=== PATIENT | male | born 1970 | race Caucasian/White ===

== ENCOUNTER → 2018-08-09 | Outpatient (CLI) | payer OTHER ==
[~2018-08-09] MED LIST: ASPI-586 PO; DOXY100C2 PO; METO-387 PO; NAPR-243 PO; PRD50T PO
--- NOTE | 2018-08-09 16:29 | Diagnostic Imaging Report ---
PROCEDURE: US right lower extremity venous. TECHNIQUE: Multiple real-time grayscale images were obtained over the right lower extremity in various projections. Additional spectral analysis and color Doppler duplex images were also obtained. INDICATION: Right leg swelling. FINDINGS: The veins in the right leg have good compressibility and color filling. There is normal spontaneous and augmented flow. IMPRESSION: Negative venous Doppler of the right leg. Dictated by: Dictated on workstation # [id number]
== END ==
LOC: RAD 15:20
PROVIDERS: ATTEND Nurse Practitioner Family
DX: M79.89 Other specified soft tissue disorders (principal)

== ENCOUNTER 2023-05-01 23:25 | Emergency (ER) | payer SELFPAY ==
[~2023-05-01] VITALS: Ht 182.8 cm; Wt 72.5 kg
[~2023-05-01 23:25] MED LIST changes: -METO-387 PO; +MTP25TSR PO
[2023-05-01 23:36] VITALS: BP 134/88
--- NOTE | 2023-05-01 23:53 | ED Lower Extremity ---
General Stated Complaint: RIGHT FOOT INJURY Source: patient Exam Limitations: no limitations History of Present Illness Date Seen by Provider: May 01, 2023 Time Seen by Provider: 23:40 Initial Comments Patient is a 53yo male who presents to the ED with a complaint of right foot pain and swelling - redness over the medial dorsal foot that showed up last night. Originally 2 weeks ago he hit the top of his foot with an axe and had pain but is able to walk. Then 2 days ago he slipped or tripped and then developed swelling and redness to the top of the foot. He is quite agitated, after I delineated the plan for xrays and checking his blood sugar he decided that he would just go to the [facility] tomorrow. He states "if you dont think it's life threatening" many times. I tried to explain - I don't know if its an abscess or broken until we do these things here. And he insisted that he would be seen tomorrow. He began to put his sock back on and decided he would leave. I did advise that this could get worse but he was more than welcome to do whatever he felt was best for him. Onset: other (worse x2 day) Severity: moderate Pain/Injury Location: right other (dorsum right foot) Method of Injury: other (direct blow then twisting injury) Allergies and Home Medications Allergies Coded Allergies: Penicillins (Unverified Allergy, Mild, 01/08/11) Patient Home Medication List Home Medication List Reviewed: Yes Aspirin (Aspir 81) 81 Mg Tablet.dr, 81 MG PO DAILY, (Reported) Entered as Reported by: ROSY OBREGON on 12/27/151751 Metoprolol Succinate (Metoprolol Succinate) 25 Mg Tab.er.24h, 25 MG PO BID, (Reported) Entered as Reported by: ROSY OBREGON on 12/27/151751 Review of Systems Constitutional: see HPI Respiratory: no symptoms reported Cardiovascular: no symptoms reported Gastrointestinal: no symptoms reported Genitourinary: no symptoms reported Musculoskeletal: joint pain (right foot) Skin: other (redness to the top of the foot with swelling and pain) All Other Systems Reviewed Negative Unless Noted: Yes Past Hnowspt-Ivwvjb-Bsxwgv Hx Seasonal Allergies Seasonal Allergies: No Past Medical History Heart Attack Physical Exam Vital Signs Vital Signs - First Documented 05/01/23 23:36 Temp 37.0 Pulse 104 Resp 16 B/P (MAP) 134/88 (103) Pulse Ox 95 O2 Delivery Room Air Capillary Refill : Height, Weight, BMI Height: 5'11" Weight: 194lbs. oz. 87.257635jn; BMI Method:Stated General Appearance: other (agitated, pressured speech; dissheveled and dirty) HEENT: PERRL/EOMI Cardiovascular: regular rate, rhythm Respiratory: no respiratory distress, no accessory muscle use Hips: bilateral hip non-tender, bilateral hip normal inspection, bilateral hip normal range of motion, bilateral hip no evidence of injury Legs: right leg other (skin wounds in various stages of healing down the right spicer) Knees: bilateral knee non-tender, bilateral knee normal inspection, bilateral knee normal range of motion, bilateral knee no evidence of injury Ankles: right ankle soft tissue tenderness (dorsum of right foot), right ankle swelling, right ankle other (large area of erythema medial dorsum of right foot about 6cm diameter) Neurologic/Psychiatric: alert, oriented x 3 Skin: normal color, warm/dry, other (as above) Progress/Results/Core Measures Results/Orders Vital Signs/I&O 05/01/23 23:36 Temp 37.0 Pulse 104 Resp 16 B/P (MAP) 134/88 (103) Pulse Ox 95 O2 Delivery Room Air Progress Progress Note : Time: 00:50 Progress Note Patient seen and evaluated by me. Eval today includes physical exam. Pertinent exam findings - thin, agitated male with stable VS. Disheveled and dirty. RIght foot and ankle significantly edematous without open wounds. Old healing wounds to the right anterior spicer. Large area 6-7cm of erythema to the dorsum of the right foot - medial aspect. Raised and tender to touch. No fluctuance appreciated. No drainage or central nidus. Pulses intact. No proximal streaking from the wound on the dorsum of the foot. ddx includes abscess, cellulitis, foor fracture. Patient became kind of agitated after I advised him we could not make an appointment here for him to have lab work done - and told him we are an emergency department not a clinic. I did say this very respectfully, however he decided he would just go to [facility] tomorrow to have xrays done and the wound evaluated. I told him that I was happy to do xrays and lay an ultrasound probe on the area - I felt like the erythematous area needed, most likely, to be opened up and drained. He declined, even after I told him we would put him on antibiotics from here. He took his sock and put it on to get ready to leave. His nurse Corey, also tried to get him to stay and let us further evaluate, however he continued to say he would just go to [facility]. He did sign an AMA paper - but I gave him discharge instructions and reasons to return. Departure Impression Primary Impression: Abscess of right foot excluding toes Disposition: AGAINST MEDICAL ADVICE Condition: Against Medical Advice Departure-Patient Inst. Decision time for Depature: 23:57 Referrals: [facility] (PCP/Family) Primary Care Physician Patient Instructions: Skin Abscess Add. Discharge Instructions: Elevate the right foot to help the swelling go down. Ice packs may also help. You can take over the counter ibuprofen (3 pills - 600mg) with food every 6 hours for pain. I think you need to have the wound opened as well as an xray to check the bones of your right foot. You also very much need to be on antibiotics. Please do go to [facility] tomorrow for evaluation or you are more than welcome to come back here and let us take care of your foot. You will need to make an appointment with [facility] to have your blood work re-checked like you were talking about. Images Extremities-Lower 1 - Moderate, Cellulitis, Rash, Swelling Copy Copies To 1: ROBERTA SAMUEL KATHRYN M MD May 01, 2023 23:53
== END 2023-05-02 | disposition left against medical advice (07) ==
LOC: EDUNIT# 23:25 → ER 23:28
DX: L02.611 Cutaneous abscess of right foot (principal)
CPT/HCPCS: 99285